=== PATIENT | female | born 1955 | race Caucasian/White ===

== ENCOUNTER 2017-09-14 18:53 | Emergency (ER) | payer MEDICAID ==
[~2017-09-14] VITALS: Ht 172.7 cm; Wt 100.0 kg
[~2017-09-14 18:53] MED LIST: ADVAI100I PO; ASPI81TA82 PO; CARV12.52 PO; FURO20 PO; LEVO150T7 PO; NAPR-576 PO; POTA-243 PO; PRIL40CA PO; XANA0.5T PO
[2017-09-14 20:18] VITALS: BP 163/85; PULSE 61; RESP 20; TEMP 97.7; O2SAT 98
[2017-09-14 22:15] VITALS: BP 169/88; PULSE 61; RESP 18; O2SAT 99
[2017-09-14] MEDS ORDERED: SODIUM CHLOR 0.9% 1000 ML INJ 1,000 ML IV ONE (22:21)
[2017-09-14] MEDS ORDERED: POTA10CA PO (22:22)
[2017-09-14] MEDS ORDERED: ADVA100A INH (22:22)
[2017-09-14] MEDS ORDERED: CARV12.52 PO (22:22)
[2017-09-14] MEDS ORDERED: OMEP40CA2 (22:22)
[2017-09-14] MEDS ORDERED: FURO20TA PO (22:22)
[2017-09-14] MEDS ORDERED: ASPI-516 CHEW (22:22)
[2017-09-14] MEDS ORDERED: TRAV0.00 EACH EYE (22:22)
[2017-09-14] MEDS ORDERED: ALPR0.5T3 PO (22:22)
[2017-09-14] MEDS ORDERED: LEVO100T5 PO (22:22)
[2017-09-14] MEDS ORDERED: MECLIZINE HCL 25 MG TAB PO ONE (22:30)
[2017-09-14 22:31] VITALS: BP_SYST 153; BP_SYST 162; BP_SYST 168; BP_DIAS 74; BP_DIAS 79; BP_DIAS 83; RESP 17; RESP 18
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
[2017-09-14 22:43] LABS: AUTOMATED NEUTROPHIL # 3.8 TH/MM3 (1.8-7.7); BASOPHIL % 0.4 % (0.0-2.0); EOSINOPHIL # 0.2 TH/MM3 (0-0.4); EOSINOPHIL % 2.7 % (0.0-4.0); HEMOGLOBIN 14.8 GM/DL (11.6-15.3); LYMPH % 29.1 % (9.0-44.0); LYMPHOCYTE # 1.8 TH/MM3 (1.0-4.8); MEAN CELL VOLUME 90.3 FL (80.0-100.0); MEAN CORPUSCULAR HGB CONC 34.4 % (32.0-36.0); MEAN PLATELET VOLUME 8.5 FL (7.0-11.0); MONO % 7.3 % (0.0-8.0); MONOCYTE # 0.5 TH/MM3 (0-0.9); NEUT % 60.5 % (16.0-70.0); PLATELET COUNT 229 TH/MM3 (150-450); RED BLOOD COUNT 4.76 MIL/MM3 (4.00-5.30); WHITE BLOOD COUNT 6.3 TH/MM3 (4.0-11.0)
--- NOTE | 2017-09-14 22:56 | RADRPT ---
EXAM DATE/TIME: 09/14/2017 22:42 [facility] COMPARISON: No previous studies available for comparison. INDICATIONS : Dizziness. RADIATION DOSE: 56.35 CTDIvol (mGy) MEDICAL HISTORY : Hypertension. Congestive heart failure. SURGICAL HISTORY : None. ENCOUNTER: Initial ACUITY: 1 day PAIN SCALE: 0/10 LOCATION: cranial TECHNIQUE: Multiple contiguous axial images were obtained of the head. Using automated exposure control and adj ustment of the mA and/or kV according to patient size, radiation dose was kept as low as reasonably a chievable to obtain optimal diagnostic quality images. DICOM format image data is available electro nically for review and comparison. FINDINGS: CEREBRUM: The ventricles are normal for age. No evidence of midline shift, mass lesion, hemorrhage or acute in farction. No extra-axial fluid collections are seen. POSTERIOR FOSSA: The cerebellum and brainstem are intact. The 4th ventricle is midline. The cerebellopontine angle i s unremarkable. EXTRACRANIAL: The visualized portion of the orbits is intact. SKULL: The calvaria is intact. No evidence of skull fracture. CONCLUSION: Normal examination. John Horan Jr., MD on September 14, 2017 at 22:53 Board Certified Radiologist. This report was verified electronically.
[2017-09-14 22:57] LABS: PROTHROMBIN TIME - PATIENT 9.9 SEC (9.8-11.6)
--- NOTE | 2017-09-14 22:57 | RADRPT ---
EXAM DATE/TIME: 09/14/2017 22:36 [facility] COMPARISON: CHEST PA & LAT, November 22, 2014, 15:23. INDICATIONS : Short of breath. MEDICAL HISTORY : None. SURGICAL HISTORY : None. ENCOUNTER: Initial ACUITY: 1 day PAIN SCORE: 0/10 LOCATION: Bilateral chest FINDINGS: A single view of the chest demonstrates the lungs to be symmetrically aerated without evidence of mas s, infiltrate or effusion. The cardiomediastinal contours are unremarkable. Osseous structures are intact. CONCLUSION: No evidence of acute cardiopulmonary disease. Bang Beckham MD on September 14, 2017 at 22:54 Board Certified Radiologist. This report was verified electronically.
[2017-09-14 22:59] LABS: ALBUMIN 4.1 GM/DL (3.4-5.0); AST (GOT) 21 U/L (15-37); BICARBONATE 29.6 MEQ/L (21.0-32.0); BLOOD UREA NITROGEN 7 MG/DL (7-18); CALCIUM 9.5 MG/DL (8.5-10.1); CHLORIDE 101 MEQ/L (98-107); CREATININE 0.75 MG/DL (0.50-1.00); GLOMERULAR FILTRATION RATE 79 ML/MIN (>89); GLUCOSE,RANDOM 89 MG/DL (74-106); MAGNESIUM 2.4 MG/DL (1.5-2.5); SODIUM (NA) 139 MEQ/L (136-145)
[2017-09-14 23:00] LABS: ALT (GPT) 23 U/L (10-53)
[2017-09-14 23:04] LABS: ALKALINE PHOSPHATASE 91 U/L (45-117); TOTAL BILIRUBIN ADULT 0.5 MG/DL (0.2-1.0); TOTAL PROTEIN 7.9 GM/DL (6.4-8.2); TROPONIN I LESS THAN 0.02 NG/ML (0.02-0.05)
[2017-09-14 23:34] VITALS: BP 142/73; PULSE 63; RESP 16; O2SAT 98
[2017-09-15 01:57] VITALS: BP 170/81; PULSE 57; RESP 16; TEMP 98.2; O2SAT 100
[2017-09-15 02:06] LABS: BILIRUBIN, URINE NEG (NEG); BLOOD, URINE NEG (NEG); GLUCOSE,URINE NEG (NEG); KETONE, URINE NEG (NEG); NITRITE,URINE NEG (NEG); SQUAMOUS EPITHELIAL CELL URINE 3 /hpf (0-5); URINE COLOR LIGHT-YELLOW (YELLW/STRAW); URINE LEUKOCYTE ESTERASE MOD (NEG)
[2017-09-15] MEDS ORDERED: MACR100C2 PO (02:39)
[2017-09-15] MEDS ORDERED: MECL-62 PO (02:39)
[2017-09-15] MEDS ORDERED: NITROFURANTOIN MONOHYD MACROCR 100 MG CAP PO ONE (02:45)
--- NOTE | 2017-09-15 14:10 | EKG ---
Date Performed: 09/14/2017 Time Performed: 22:20:39 PTAGE: 62 years EKG: SINUS BRADYCARDIA LOW QRS VOLTAGE IN PRECORDIAL LEADS BORDERLINE ECG Since the PREVIOUS TRACING , no significant change noted PREVIOUS TRACIN11/22/2014 15.18 DOCTOR: Purnima Mendez Interpretating Date/Time 09/15/2017 13:59:28
== END 2017-09-15 02:51 | disposition home or self-care (01) ==
LOC: NEPC 18:53
DX: N39.0 Urinary tract infection, site not specified (principal); B95.4 Other streptococcus as the cause of diseases classified elsewhere; R42 Dizziness and giddiness; I11.0 Hypertensive heart disease with heart failure; I50.9 Heart failure, unspecified; J44.9 Chronic obstructive pulmonary disease, unspecified; R00.1 Bradycardia, unspecified; F41.9 Anxiety disorder, unspecified; Z88.8 Allergy status to other drugs, medicaments and biological substances; Z79.899 Other long term (current) drug therapy
CPT/HCPCS: 70450; 71045; 80053; 81001; 82550; 83735; 84484; 85025; 85610; 85730; 87077; 87086; 87186; 93005; 96360; 96361; 99285; J7030